=== PATIENT | male | born 1995 | race Caucasian/White ===

== ENCOUNTER 2021-10-22 14:43 | Emergency (ER) | payer OTHER ==
[2021-10-22 15:11] VITALS: BP 148/77; PULSE 84; TEMP 97.9; BMI 29.1
[2021-10-22] MEDS ORDERED: FLUORESCEIN NA 1 EA STRIP ONE (17:04)
== END 2021-10-22 17:53 | disposition home or self-care (01) ==
LOC: JERFT 14:43
DX: S05.02XA Injury of conjunctiva and corneal abrasion without foreign body, left eye, initial encounter (principal); W26.8XXA Contact with other sharp object(s), not elsewhere classified, initial encounter
CPT/HCPCS: 99283-25